=== PATIENT | female | born 1990 | race Caucasian/White ===

== ENCOUNTER 2021-07-06 22:11 | Emergency (ER) | payer OTHER ==
[~2021-07-06] VITALS: Ht 165.1 cm; Wt 59.0 kg
[2021-07-06] MEDS ORDERED: IBUPROFEN 600 MG TABLET ONE (23:13)
[2021-07-06] MEDS ORDERED: IBUPROFEN 600 MG TABLET PO ONE (23:30)
--- NOTE | 2021-07-06 23:44 | NUR ---
[facility]. UPDATED TDAP WITHIN 5 YEARS. PT A/OX4. TOLERATING R/A WELL WITH NO SOB.
[2021-07-07] MEDS ORDERED: DOXYCYCLINE HYCLATE (100 MG) 100 MG TABLET ONE (00:28)
[2021-07-07] MEDS ORDERED: DOXYCYCLINE HYCLATE (100 MG) 100 MG TABLET PO ONE (00:30)
[2021-07-07] MEDS ORDERED: DOXY-226 PO (01:34)
[2021-07-07 01:45] VITALS: BP 121/66
--- NOTE | 2021-07-07 01:46 | NUR ---
Patient discharged to home in stable condition. Rx and Written and verbal after care instructions given. Patient verbalizes understanding of instruction.
== END 2021-07-07 01:46 | disposition home or self-care (01) ==
LOC: ER 22:19
DX: S61.250A Open bite of right index finger without damage to nail, initial encounter (principal); Z88.0 Allergy status to penicillin; W55.01XA Bitten by cat, initial encounter; Y93.89 Activity, other specified; Y92.89 Other specified places as the place of occurrence of the external cause; Y99.8 Other external cause status
CPT/HCPCS: 73140; 84703; 99284; A6403